=== PATIENT | female | born 1990 | race Caucasian/White ===

== ENCOUNTER 2024-07-11 08:21 | Emergency (ER) | payer OTHER, SELFPAY ==
[2024-07-11] VITALS (12 sets, daily range): BP systolic 102–114; BP diastolic 47–70; PULSE 78–97; RESP 16; TEMP 36.8; O2SAT 99–100; BMI 27.3
--- NOTE | 2024-07-11 09:49 | ED.GENADULT ---
HPI - General Adult General Date Seen: 07/11/24 Chief complaint: Unspecified Complaint, Adult Stated complaint: Needs Blood transfusion Time Seen by Provider: 07/11/24 09:16 Source: patient, RN notes reviewed and old records reviewed Mode of arrival: ambulatory Limitations: no limitations History of Present Illness HPI narrative: This 34-year-old female is coming in with complaint of requiring a transfusion due to anemia. She was told her hemoglobin was 5.4. She went to clinic at [facility] yesterday in [place]. She went in for episodes of lightheadedness dizziness that have been happening over the last month and worsening, near fainting when when exercising. She has a history of heavy periods but recently have not been heavy. She is adopted and does not know family history. She denies any nausea, no dyspepsia symptoms, no blood in stools, no dark tarry stools. I have reviewed that visit from yesterday, have brought up her labs from yesterday. Her comprehensive metabolic panel was normal. Her total white blood count was 9100, hemoglobin 5.2, MCV 62.5, platelet count [id number]. Her thyroid was normal at 2.5 for yesterday, vitamin-D was low at 22 and she states they did send in vitamin-D for her. I do not see that any indices have been ordered for iron. This is a microcytic anemia and will do the iron panel, peripheral smear, etc. patient does want blood transfusion, did discuss this. Related Data Home Medications ?Medication ?Instructions ?Recorded ?Confirmed No Known Home Medications 07/11/24 07/11/24 Allergies Allergy/AdvReac Type Severity Reaction Status Date / Time No Known Drug Allergies Allergy Verified 07/11/24 08:40 Review of Systems Status of ROS: Reports: 6 or more systems reviewed and unremarkable except as noted in History and below Exam Const: Vital Signs, click to edit/add: Vital Signs - 24 hr 07/11/24 08:36 07/11/24 09:19 07/11/24 09:20 Temperature 98.3 F Pulse Rate 82 78 Pulse Rate [Pulse Oximeter] 94 Respiratory Rate 16 Blood Pressure 114/70 Blood Pressure [Ri ght Upper Arm] 114/70 Pulse Oximetry 100 100 100 Oxygen Delivery Me thod Room Air 07/11/24 09:30 07/11/24 09:32 07/11/24 09:45 Temperature Pulse Rate 86 88 82 Pulse Rate [Pulse Oximeter] Respiratory Rate Blood Pressure 102/47 L Blood Pressure [Ri ght Upper Arm] Pulse Oximetry 99 100 100 Oxygen Delivery Me thod 07/11/24 10:00 07/11/24 10:02 07/11/24 10:15 Temperature Pulse Rate 97 90 85 Pulse Rate [Pulse Oximeter] Respiratory Rate Blood Pressure 111/63 Blood Pressure [Ri ght Upper Arm] Pulse Oximetry 100 100 100 Oxygen Delivery Me thod 07/11/24 10:30 07/11/24 10:32 07/11/24 10:45 Temperature Pulse Rate 79 78 96 Pulse Rate [Pulse Oximeter] Respiratory Rate 16 Blood Pressure 106/61 Blood Pressure [Ri ght Upper Arm] Pulse Oximetry 100 100 100 Oxygen Delivery Me thod Course Course ED Course: IV will be placed, patient will have CBC, type and screen for 2 unit packed red blood cell transfusion. Patient is consented on blood transfusion. Will do iron indices as well, order peripheral smear. Reevaluation(s) Time of Reevaluation #1: 10:57 Reevaluation #1: Have reviewed with patient she does have iron deficiency anemia. Platelets are the 700,000 range, could be reactionary, do have peripheral smear pending. Do think we can safely proceed with 2 units packed red blood cells, will go to [facility] for this. Did happen to speak with Mee Whaley in the interim, she will try to get the fecal occult blood order in and patient can pickle pumper the kit at their lab. Vital Signs Vital signs: Initial Vital Signs Temperature 98.3 F 07/11/24 08:36 Temperature Source Temporal Artery Scan 07/11/24 08:36 Pulse Rate 94 07/11/24 08:36 Respiratory Rate 16 07/11/24 08:36 Blood Pressure 114/70 07/11/24 08:36 Blood Pressure Mean 84 07/11/24 08:36 Blood Pressure Position Sitting 07/11/24 08:36 Pulse Oximetry 100 07/11/24 08:36 Oxygen Delivery Method Room Air 07/11/24 08:36 Vital Signs Temperature 98.3 F 07/11/24 08:36 Pulse Rate 94 07/11/24 08:36 Respiratory Rate 16 07/11/24 08:36 Blood Pressure 114/70 07/11/24 08:36 Pulse Oximetry 100 07/11/24 08:36 Oxygen Delivery Method Room Air 07/11/24 08:36 Temperature 98.3 F 07/11/24 08:36 Pulse Rate 96 07/11/24 10:45 Respiratory Rate 16 07/11/24 10:32 Blood Pressure 106/61 07/11/24 10:32 Pulse Oximetry 100 07/11/24 10:45 Oxygen Delivery Method Room Air 07/11/24 08:36 Medical Decision Making Lab Data Lab results reviewed: Yes I reviewed the patient's lab results Labs: Lab Results 07/11/24 Range/Units 09:18 WBC 6.45 (4.50-11.00) K/uL RBC 3.43 L (4.00-5.20) m/uL Hgb 5.2 L* (12.0-16.0) gm/dL Hct 21.2 L (33.0-51.0) % MCV 62 L (80-100) fL MCH 15 L (26-34) pg MCHC 25 L (32-36) gm/dL RDW Coeff of Rodrigo 23.5 H (11.5-15.5) % Plt Count 785 H (140-440) K/uL Neut % (Auto) 69.0 (42.0-72.0) % Lymph % (Auto) 22.8 (20-44) % Whitman % (Auto) 6.8 (0.0-11.0) % Eos % (Auto) 0.3 (0.0-7.0) % Baso % (Auto) 0.9 (0.0-3.0) % Neut # (Auto) 4.45 (1.7-7.0) K/uL Lymph # (Auto) 1.47 (0.90-2.90) K/uL Whitman # (Auto) 0.40 (0.00-0.90) K/UL Eos # (Auto) 0.02 (0.00-0.50) K/uL Baso # (Auto) 0.06 (0.00-0.30) K/uL Abs Immat Gran (auto) 0.01 (0.00-0.30) K/uL Imm/Tot Granulo (auto) 0.2 % Diff Slide Review Acceptable Review (Acceptable) Absolute Retic 0.11 H (0.03-0.08) # Percent Retic 3.1 H (0.5-2.0) % Immature Retic Fraction 29.3 H (3.0-15.9) % Retic Hgb Equivalent 10.0 L (29.0-35.0) pg Iron 18 L (37-170) ug/dL TIBC 497 (265-497) ug/dL % Saturation 4 L (20-50) % Ferritin 3.9 L (6.24-137.0) ng/mL Blood Type Cancelled Antibody Screen Cancelled Crossmatch (AHG) See Detail Discharge Plan Discharge Clinical Impression: Iron deficiency anemia Patient Disposition: Xfer Other Condition: Stable Instructions: Iron Rich Diet (ED), Anemia (ED) Additional Instructions: Need to get fecal occult blood testing done, consider pelvic ultrasound; with you can pickle pumper the fecal occult blood test at the lab at [facility]. Keep your follow-up appointment. May need to consider getting iron transfusion which your primary care provider will have to authorized. You will need further evaluation and management regarding your iron deficiency anemia, source does need to be found. New may possibly need EGD and colonoscopy in this workup and your primary care provider will help figure that out. Activity Level: Activity as Tolerated Prescriptions: No Action No Known Home Medications Stand Alone Forms: Loop Info Instructions
[2024-07-11 10:08] LABS: Basophils Absolute Auto 0.06 K/uL (0.00-0.30); Basophils Percent Auto 0.9 % (0.0-3.0); Eosinophils Absolute Auto 0.02 K/uL (0.00-0.50); Eosinophils Percent Auto 0.3 % (0.0-7.0); Hematocrit 21.2 % (33.0-51.0); Immature Granulocytes Abs Auto 0.01 K/uL (0.00-0.30); Immature Granulocytes Pct Auto 0.2 %; Immature Reticulocyte Fraction 29.3 % (3.0-15.9); Lymphocytes Absolute Auto 1.47 K/uL (0.90-2.90); Lymphocytes Percent Auto 22.8 % (20-44); Mean Corpuscular HGB Conc 25 gm/dL (32-36); Mean Corpuscular Hemoglobin 15 pg (26-34); Mean Corpuscular Volume 62 fL (80-100); Monocytes Percent Auto 6.8 % (0.0-11.0); Neutrophils Absolute Auto 4.45 K/uL (1.7-7.0); Platelet Count* 785 K/uL (140-440); RDW Coefficient of Variation % 23.5 % (11.5-15.5); Red Blood Count 3.43 m/uL (4.00-5.20); Reticulocyte Percent 3.1 % (0.5-2.0); Reticulocytes Absolute 0.11 # (0.03-0.08); White Blood Count* 6.45 K/uL (4.50-11.00)
[2024-07-11 10:19] LABS: Iron* 18 ug/dL (37-170)
[2024-07-11 10:29] LABS: Percent Iron Saturation 4 % (20-50); Total Iron Binding Capacity 497 ug/dL (265-497)
[2024-07-11 10:34] LABS: Hemoglobin* 5.2 gm/dL (12.0-16.0); Slide Review Reflex Yes
[2024-07-11 10:54] LABS: Ferritin* 3.9 ng/mL (6.24-137.0)
[2024-07-11 11:44] LABS: Slide Review Acceptable Review (Acceptable)
== END 2024-07-11 11:10 | disposition other institution (70) ==
PROVIDERS: Emergency Provider Family Medicine
DX: D50.9 Iron deficiency anemia, unspecified (principal)
CPT/HCPCS: 36415; 82728; 83540; 83550; 85025; 85045; 86850; 86900; 86901; 86922; 99283; 99284

== ENCOUNTER 2024-07-11 11:24 | Outpatient (RCR) | payer SELFPAY ==
[2024-07-11] VITALS (11 sets, daily range): BP systolic 98–106; BP diastolic 50–66; PULSE 74–89; RESP 16–18; TEMP 36.6–37.1; O2SAT 99–100
== END 2025-01-07 23:59 | disposition home or self-care (01) ==
LOC: CCIC 11:24
PROVIDERS: Visit Provider Clinical Nurse Specialist
DX: D50.9 Iron deficiency anemia, unspecified (principal)
CPT/HCPCS: 36415; 36430; 86850; 86900; 86901; 86922; P9016